=== PATIENT | female | born 1955 | race Caucasian/White ===

== ENCOUNTER 2016-10-22 03:39 | Observation (INO) | payer BC, SELFPAY ==
--- NOTE | ~2016-10-22 | HP ---
History And Physical [id number] [place]. [address] NAME: SHIRIN GIBSON : 55 STATUS : ADM Gissel PAT#: [id number] AGE: 60 ADM/REG DATE : 10/22/16 MR#: [id number] REPORT SERV DATE: 10/22/16 DICTATED BY: MAGI AVILES DATE: 10/22/16 REPORT STATUS : Draft TRANSCRIBED BY: MODL DATE: 10/22/16 DATE OF ADMISSION: 10/22/2016 HELPDESK SPECIALIST: Radha and Rigo at [facility] (requests new patient appointment at [facility]). CHIEF COMPLAINT: Chest pain. HISTORY OF PRESENT ILLNESS: A very pleasant, 60-year-old, white female with known history of CAD, status post BMS to ramus 10/[address] Garcia and PVD with bilateral carotid stents and mesenteric PTCA by Dr. Moreira in 2013. The patient states that on 10/21 around 2100 she was getting ready for bed. She developed left-sided chest pain that radiated to her left neck and down her left arm. She rates the chest pain a 10/10 at its most intense. At time of interview in the [facility], she is pain free. She states the episode lasted approximately 60 minutes in duration. She reports she did not take any additional aspirin or nitroglycerin sublingual prior to driving herself here. She reports associated shortness of breath, nausea, diaphoresis, and dizziness, wanted to belch but could not. She actually reports these symptoms as somewhat dissimilar to when she had her stent placed in 2013 although she can't really describe her symptoms prior to her stent placement. She believes she had a heart attack with her stent placement or prior to her stent placement, reports a TIA in 2013 with deficits of imbalance and some memory issues. Denies history of DVT or pulmonary embolus. The patient denies any recent fever or chills, describes occasional palpitations. Consumes 12-ounce coke occasionally. No syncopal episodes. Denies PND or orthopnea. PAST MEDICAL HISTORY: 1. CAD. a. Self reports, status post [place]. b. BMS to ramus 10/2013 ([place]). c. PVD. d. Stents to bilateral carotids. e. Mesenteric PTCA [address] Moreira. 2. Hypertension. 3. Dyslipidemia. 4. AODM, diet controlled. 5. Sleep apnea compliant with CPAP. 6. Positive family history for early CAD. PAST SURGICAL HISTORY: 1. Hysterectomy. 2. Cholecystectomy. 3. Tonsillectomy. 4. Left hand surgery. 5. Cataract repair. History And Physical [address] [place]. [address] NAME: SHIRIN GIBSON : 55 STATUS : ADM Gissel PAT#: [id number] AGE: 60 ADM/REG DATE : 10/22/16 MR#: [id number] REPORT SERV DATE: 10/22/16 DICTATED BY: MAGI AVILES DATE: 10/22/16 REPORT STATUS : Draft TRANSCRIBED BY: PEPPER DATE: 10/22/16 SOCIAL HISTORY: She is with two children. Currently, disabled. Previously employed as a hairdresser. Does not have an exercise routine. Denies tobacco, alcohol, or illicit's. FAMILY HISTORY: Father with a heart attack at 32, of a heart attack at 42. Mother with a stroke at 75, remains alive at the age of 80. REVIEW OF SYSTEMS: A 14-point review of systems performed, significant for HPI including reported labile blood pressures, unable to report specific numbers. Recently valsartan has been cut in half from 320 to 160 mg daily. The patient reports a cath most recently at [facility] 03/2016. We will attempt to obtain records. Otherwise complete review of systems obtained and negative. ALLERGIES: ISOSORBIDE, SHORTNESS OF BREATH, NEAR-SYNCOPE. DOXYCYCLINE, RASH. METOPROLOL, BAD REACTION. COMPAZINE, HARDENED VEIN, AND SOME UNKNOWN MED ADMINISTERED DURING HYSTERECTOMY, RASH AND HOT ALL OVER. HOME MEDICINES: Albuterol p.r.n.; aspirin 81 mg daily; vitamin D 2000 mg daily; Plavix 75 mg nightly; Zetia 5 mg nightly; levothyroxine 100 mcg daily; Cortisporin ear drops; Crestor 10 mg nightly; Aldactone 50 mg daily and 25 mg p.r.n.; valsartan 160 mg nightly. PHYSICAL EXAMINATION: VITAL SIGNS: Bilateral blood pressures on arrival, right 139/62, left 130/58, pulse 52, respirations 19, temperature 97.8, O2 saturation 98% on room air, height 5 feet 6 inches, weight 175 pounds, BMI 28. GENERAL: Cooperative, in no apparent distress. HEENT: Pupils 2 mm, sclera nonicteric. Nares patent. Moist mucous membranes. No xanthelasma. NECK: Trachea midline, no thyromegaly. No JVD. No bruits. LYMPH: No cervical lymphadenopathy. No supraclavicular lymphadenopathy. RESPIRATORY: Unlabored respirations. Breath sounds clear bilaterally to posterior auscultation. No wheezes or rhonchi. CARDIOVASCULAR: Regular rate. No murmur, rub or gallop appreciated. Extremities without edema. Pulses 2+ bilaterally. ABDOMEN: Soft, nontender, nondistended, normal bowel sounds auscultated throughout. No organomegaly. SKIN: Warm, dry extremities. No pallor, or cyanosis. PSYCHIATRIC: Appropriate affect. Alert, oriented x3. LABORATORY DATA: Troponin less than 0.02 x3. Potassium 3.6, BUN 26, creatinine 1.10, glucose 117, magnesium 2.0. WBC 5.9, hemoglobin 16.6, hematocrit 48.2, platelet count 176,000. EKG, sinus rhythm with nonspecific T-waves. MPI, 03/2014: Rodney stage 2, 6.2 minutes, 7 METS. No ischemia but with 6/10 chest pain. Cath 04/2014 ([place]): EF 55%. No significant in-stent restenosis found. History And Physical [address] [address] NAME: SHIRIN GIBSON : 55 STATUS : ADM Gissel PAT#: [id number] AGE: 60 ADM/REG DATE : 10/22/16 MR#: [id number] REPORT SERV DATE: 10/22/16 DICTATED BY: MAGI AVILES DATE: 10/22/16 REPORT STATUS : Draft TRANSCRIBED BY: MODL DATE: 10/22/16 The patient reports cath on 03/2016 at [facility]. No PCI per report. ASSESSMENT AND PLAN: 1. Chest pain in patient with multiple risk factors. She has been observed in the CPOU overnight to rule out myocardial infarction. Three sets of cardiac markers negative. EKG appears stable. The patient has been held n.p.o. We will proceed with MPI today. Home if low risk, no ischemia. If anything suggestive of ischemia, Cardiology referral will be initiated. Otherwise, the patient will be asked to follow up with her PCP. The patient requests a new patient appointment at [facility] which will be arranged for her. 2. Coronary artery disease. Obtain records from [facility]. New patient appointment at [facility]. 3. Hypertension. Monitor blood pressure. Continue home medications. 4. Dyslipidemia. Continue statin. 5. Adult onset diabetes mellitus. Currently, diet controlled. Continue 1800 calorie ADA diet. 6. Peripheral vascular disease, has appointment with Dr. Moreira on 10/28. She has been instructed to keep that appointment. KAREN/MODL Magi Aviles MSN, TITLE SUPERVISOR-BC / [id number] CC: MILE Noel, TITLE SUPERVISOR-BC Bon Goldsmith MD
[2016-10-22 01:40] LABS: BASOPHILS 0.5 %; BASOPHILS ABSOLUTE 0.03 10/3/uL (0.0-0.16); EOSINOPHILS 5.1 %; ER CBC TAT 0 Hrs 00 Mins; HEMATOCRIT 48.2 % (36.0-48.0); HEMOGLOBIN 16.6 g/dL (12.0-16.0); IMMATURE GRANULOCYTES 0.2 %; IMMATURE GRANULOCYTES ABSOLUTE 0.01 10/3/uL (0.0-0.11); LYMPHOCYTES 37.9 %; LYMPHOCYTES ABSOLUTE 2.22 10/3/uL (0.67-4.30); MEAN CORPUS HGB CONC 34.4 g/dL (32.0-36.0); MEAN CORPUSCULAR HEMOGLOB 30.9 pg (26.0-34.0); MEAN CORPUSCULAR VOLUME 89.6 fL (80-100); MEAN PLATELET VOLUME 11.4 fL (9.2-13.0); MONOCYTES 6.7 %; MONOCYTES ABSOLUTE 0.39 10/3/uL (0.21-1.20); NEUTROPHILS 49.6 %; PLATELET COUNT 176 10/3/uL (150-400); RED CELL COUNT 5.38 10/6/uL (4.0-5.6); WHITE BLOOD CELLS 5.9 10/3/uL (4.5-10.5)
[2016-10-22 01:41] LABS: MANUAL DIFF NO %
[2016-10-22 01:50] LABS: INTERNATIONAL NORMAL RATI 0.9 UNITS (-); PARTIAL THROMBO TIME 27.3 SEC (22.5-37.2); PROTIME (NOT ORD) 12.4 SEC (12.0-14.5)
[2016-10-22 01:58] LABS: BUN (BLOOD UREA NITROGEN) 26 MG/DL (6-23); CALCIUM, SERUM 8.6 MG/DL (8.5-10.4); CHEST PAIN PROFILE TAT 0 Hrs 11 Mins; CHLORIDE, SERUM 111 MMOL/L (96-112); CO2 (CARBON DIOXIDE) 26 MMOL/L (24-34); GFR AFRICAN AMERICAN 63 ML/MIN (>=60); GFR NON AFRICAN AMERICAN 55 ML/MIN (>=60); GLUCOSE, SERUM 117 MG/DL (60-99); SODIUM, SERUM 145 MMOL/L (135-148); TROPONIN I <0.02 NG/ML (<0.05)
[2016-10-22 02:02] LABS: POTASSIUM, SERUM 3.6 MMOL/L (3.5-5.3)
[~2016-10-22 03:39] MED LIST: ASAB PO; CHLORTHALID50 MG OR; COREG3 PO; CRESTOR10 PO; DIL4TAB PO; DIOV160 PO; FISH OIL PO; FLONASE NAS; HALF81 PO; HYGROTON 25 MG25 MG PO; ISOSORBIDE; KLOR-CON M2020 MEQ PO; LEVOTHYROXIN100 MCG PO; LEVOTHYROXIN88 MCG PO; LIPITOR20 PO; LOP25 PO; METOPROLOL; MULTIPLE VIT PO; NASONEX NAS; NITROSTAT0.4 MG SL; NORCO1 TAB PO; NORV5 PO; OS500+D PO; PEPCID AC PO; PLAVIX PO; PROAIR HFA INH; PROTONIX PO; SPIRO50 PO; SYN1 PO; T PO; VITAMIN D2000 UNIT PO; ZETIA PO
[2016-10-22] MEDS ORDERED: PROAIR HFA INH (03:47)
[2016-10-22] MEDS ORDERED: CORTOTSOL OT (03:48)
[2016-10-22] MEDS ORDERED: DIOVAN320 MG PO (03:48)
[2016-10-22] MEDS ORDERED: SYN1 PO (03:49)
[2016-10-22] MEDS ORDERED: SPIRO25 PO (03:49)
[2016-10-22] MEDS ORDERED: VITAMIN D31000 UNIT PO (03:50)
[2016-10-22] MEDS ORDERED: PLAVIX PO (03:50)
[2016-10-22] MEDS ORDERED: SPIRO50 PO (03:50)
[2016-10-22] MEDS ORDERED: ASAB PO (03:50)
[2016-10-22] MEDS ORDERED: CRESTOR10 PO (03:51)
[2016-10-22] MEDS ORDERED: ZETIA PO (03:52)
== END 2016-10-22 14:34 | disposition home or self-care (01) ==
LOC: ER 03:39 → CDU1 03:42
PROVIDERS: Specialist
DX: R07.9 Chest pain, unspecified (principal); I25.10 Atherosclerotic heart disease of native coronary artery without angina pectoris; I73.9 Peripheral vascular disease, unspecified; I25.2 Old myocardial infarction; I10 Essential (primary) hypertension; E78.5 Hyperlipidemia, unspecified; E11.9 Type 2 diabetes mellitus without complications; G47.30 Sleep apnea, unspecified; Z99.81 Dependence on supplemental oxygen; Z90.710 Acquired absence of both cervix and uterus; Z90.49 Acquired absence of other specified parts of digestive tract; Z98.890 Other specified postprocedural states; Z88.8 Allergy status to other drugs, medicaments and biological substances; Z79.82 Long term (current) use of aspirin; Z79.02 Long term (current) use of antithrombotics/antiplatelets; Z79.899 Other long term (current) drug therapy
CPT/HCPCS: 71020; 78452; 80048; 83735; 84484; 85025; 85610; 85730; 93005; 93017; 96374; 96375; 99285; A9270-GY; A9502; G0378; J2405

== ENCOUNTER 2016-11-08 13:26 | Inpatient (IN) | payer BC, SELFPAY ==
[2016-11-06 13:50] LABS: HEMATOCRIT 48.3 % (36.0-48.0); HEMOGLOBIN 16.9 g/dL (12.0-16.0); MEAN CORPUSCULAR HEMOGLOB 30.8 pg (26.0-34.0); MEAN CORPUSCULAR VOLUME 88.1 fL (80-100); MEAN PLATELET VOLUME 11.5 fL (9.2-13.0); PLATELET COUNT 177 10/3/uL (150-400); RBC DISTRIBUTION WIDTH 12.9 % (12.0-16.0); RED CELL COUNT 5.48 10/6/uL (4.0-5.6); WHITE BLOOD CELLS 7.1 10/3/uL (4.5-10.5)
[2016-11-06 13:52] LABS: MANUAL DIFF YES %
[2016-11-06 13:54] LABS: ASCORBIC ACID (UR NOT ORDER) NEG (NEG); BILIRUBIN, URINE NEGATIVE (NEG); KETONE, URINE NEGATIVE (NEG); LEUKOCYTE ESTERASE(NOT OR MOD (NEG); WBC (NOT ORDERED) (RFLEX) 3 (0-5)
[2016-11-06 14:04] LABS: CALCIUM, SERUM 9.3 MG/DL (8.5-10.4); CHLORIDE, SERUM 108 MMOL/L (96-112); CO2 (CARBON DIOXIDE) 29 MMOL/L (24-34); CREATININE 1.02 MG/DL (0.55-1.02); GFR AFRICAN AMERICAN 69 ML/MIN (>=60); GFR NON AFRICAN AMERICAN 59 ML/MIN (>=60); GLUCOSE, SERUM 96 MG/DL (60-99); SODIUM, SERUM 144 MMOL/L (135-148)
[2016-11-06 14:05] LABS: BUN (BLOOD UREA NITROGEN) 21 MG/DL (6-23); POTASSIUM, SERUM 4.7 MMOL/L (3.5-5.3)
[2016-11-06 14:15] LABS: EOSINOPHILS 1 %; EOSINOPHILS ABSOLUTE (CALC) 0.07 10/3/uL (0.0-0.53); LYMPHOCYTES 28 %; LYMPHOCYTES ABSOLUTE (CALC) 1.99 10/3/uL (0.67-4.30); MONOCYTES 6 %; MONOCYTES ABSOLUTE (CALC) 0.43 10/3/uL (0.21-1.20); NEUTROPHILS ABSOLUTE (CALC) 4.62 10/3/uL (2.02-8.40); PLATELET ESTIMATE ADQ (ADEQUATE); SEGMENTED NEUTROPHIL (0) 65 %; TOTAL NUCLEATED CELLS 100
[2016-11-06 14:16] LABS: BURR CELLS 1+ (3-10/OIF) (0-2/OIF); ELLIPTOCYTES 1+ (3-10/OIF) (0-2/OIF); TEARDROP SHAPED RBCS FEW (3-10/OIF)
--- NOTE | ~2016-11-08 | OP ---
Record Of Operation [facility] [address] [place]. [address] NAME: SHIRIN NINA : 55 STATUS : DIS IN PAT#: [id number] AGE: 61 ADM/REG DATE : 11/08/16 MR#: [id number] REPORT SERV DATE: 11/12/16 DICTATED BY: AYAAN SCHUMACHER II DATE: 11/12/16 REPORT STATUS : Draft TRANSCRIBED BY: MODL DATE: 11/12/16 DATE OF PROCEDURE: 11/08/2016 SURGEON: Ayaan Schumacher M.D. FISCAL MANAGER: Dr. Rm. PREOPERATIVE DIAGNOSIS: Symptomatic recurrent right carotid stenosis. POSTOPERATIVE DIAGNOSIS: Symptomatic recurrent right carotid stenosis. PROCEDURES: 1. Right cervical carotid angiogram. 2. Percutaneous primary stent placement with distal filter protection of recurrent internal carotid artery stenosis. ANESTHESIA: Local with MAC. IV FLUIDS: 200 mL. ESTIMATED BLOOD LOSS: 20 mL. BRIEF HISTORY: Ms Nina is a pleasant 61-year-old female, who is a long-standing patient of mine. She had previously presented with bilateral carotid stenosis as well as a significant cardiac history. She has undergone previous bilateral carotid stent placement. She experienced an episode of amaurosis fugax in her right eye as well as TIA involving the left upper extremity. Repeat ultrasound demonstrates recurrent stenosis within the right internal carotid artery within the distal aspect of the stent, and the [place] mid internal carotid artery. Based on the recurrent nature of this stenosis, she was felt to be at high risk for endarterectomy and was recommended to undergo angiogram, and possible stent placement. DESCRIPTION OF PROCEDURE: She was taken to the operating room and placed in supine position on the table. Sedation was achieved. Both groins were prepped and draped. We used ultrasound to identify the right common femoral artery and performed a puncture, and placed a 6-Persian sheath. Systemic heparin was given. We passed a catheter into the right common carotid artery. Angiogram was performed demonstrating a patent common carotid internal and external carotid artery. There was a stent present within the common carotid artery that extends into the internal carotid, at the distal aspect of the stent, there was a focal recurrent stenosis of more than 80%. There was also mild recurrent stenosis within the existing stent. The distal internal carotid was widely patent; however, there was evidence of evidence of mild fibromuscular dysplasia involving the very distal internal carotid artery. However, no significant stenosis was seen within this region. At this point, we elected to proceed with stent placement. I was able to pass a filter through the stenosis, and opened the filter in the distal internal carotid. Primary stent placement was performed using a 7 mm x 30 mm stent that was deployed within the distal internal carotid artery, and Record Of Operation [facility] [address] [place]. [address] NAME: SHIRIN NINA : 55 STATUS : DIS IN PAT#: [id number] AGE: 61 ADM/REG DATE : 11/08/16 MR#: [id number] REPORT SERV DATE: 11/12/16 DICTATED BY: AYAAN SCHUMACHER II DATE: 11/12/16 REPORT STATUS : Draft TRANSCRIBED BY: PEPPER DATE: 11/12/16 then with the proximal aspect extending down into the existing stent. We post dilated this with a 4-mm balloon. There was a severe waist that responded to 8 ATMs. Completion angiogram demonstrated a good placement of the stent with no further stenosis seen. No dissection or extravasation. Improved flow was noted distally. We then removed the filter and removed all the wires and catheters and closed percutaneously. At the end of the procedure, the patient was stable. She tolerated it well. She had no neurologic events, and she was transported to the recovery room in good condition. CEDRICK/PEPPER Ayaan Schumacher II, M.D. / [id number] CC: Chanelle Prajapati II, MD
[~2016-11-08 13:26] MED LIST changes: +CORTOTSOL OT; +DIOVAN320 MG PO; +SPIRO25 PO; +VITAMIN D31000 UNIT PO
[2016-11-09 04:19] LABS: BASOPHILS 0.1 %; BASOPHILS ABSOLUTE 0.01 10/3/uL (0.0-0.16); EOSINOPHILS 0 %; HEMOGLOBIN 15.3 g/dL (12.0-16.0); IMMATURE GRANULOCYTES 0.2 %; IMMATURE GRANULOCYTES ABSOLUTE 0.02 10/3/uL (0.0-0.11); LYMPHOCYTES ABSOLUTE 0.55 10/3/uL (0.67-4.30); MEAN CORPUS HGB CONC 36.2 g/dL (32.0-36.0); MEAN CORPUSCULAR HEMOGLOB 31.6 pg (26.0-34.0); MEAN CORPUSCULAR VOLUME 87.4 fL (80-100); MEAN PLATELET VOLUME 11.1 fL (9.2-13.0); MONOCYTES 3.6 %; MONOCYTES ABSOLUTE 0.33 10/3/uL (0.21-1.20); NEUTROPHILS 90.1 %; NEUTROPHILS ABSOLUTE 8.32 10/3/uL (2.02-8.40); PLATELET COUNT 155 10/3/uL (150-400); RBC DISTRIBUTION WIDTH 12.9 % (12.0-16.0); RED CELL COUNT 4.84 10/6/uL (4.0-5.6); WHITE BLOOD CELLS 9.2 10/3/uL (4.5-10.5)
[2016-11-09 04:21] LABS: HEMATOCRIT 42.3 % (36.0-48.0); MANUAL DIFF NO %
[2016-11-09 04:34] LABS: CALCIUM, SERUM 8.6 MG/DL (8.5-10.4); CHLORIDE, SERUM 109 MMOL/L (96-112); CO2 (CARBON DIOXIDE) 25 MMOL/L (24-34); GFR AFRICAN AMERICAN 80 ML/MIN (>=60); GFR NON AFRICAN AMERICAN 69 ML/MIN (>=60); POTASSIUM, SERUM 3.8 MMOL/L (3.5-5.3); SODIUM, SERUM 142 MMOL/L (135-148)
[2016-11-09 04:35] LABS: BUN (BLOOD UREA NITROGEN) 16 MG/DL (6-23); GLUCOSE, SERUM 146 MG/DL (60-99)
== END 2016-11-10 13:30 | disposition home or self-care (01) | DRG 36 ==
LOC: SDC 13:26 → CVICU 19:11 → 2SO 11-09 13:38
PROVIDERS: Surgery
PROC: B41D1ZZ Fluoroscopy of Aorta and Bilateral Lower Extremity Arteries using Low Osmolar Contrast (ICD-10-PCS; 2016-11-08)
PROC: 037K3DZ Dilation of Right Internal Carotid Artery with Intraluminal Device, Percutaneous Approach (ICD-10-PCS; principal; 2016-11-08 14:45)
PROC: X2A5312 Cerebral Embolic Filtration, Dual Filter in Innominate Artery and Left Common Carotid Artery, Percutaneous Approach, New Technology Group 2 (ICD-10-PCS; 2016-11-08 14:45)
DX: I65.21 Occlusion and stenosis of right carotid artery (principal); E11.51 Type 2 diabetes mellitus with diabetic peripheral angiopathy without gangrene; I25.10 Atherosclerotic heart disease of native coronary artery without angina pectoris; Z95.5 Presence of coronary angioplasty implant and graft; E78.5 Hyperlipidemia, unspecified; I10 Essential (primary) hypertension; Z86.73 Personal history of transient ischemic attack (TIA), and cerebral infarction without residual deficits; G47.30 Sleep apnea, unspecified; M17.9 Osteoarthritis of knee, unspecified; K21.9 Gastro-esophageal reflux disease without esophagitis
CPT/HCPCS: 37215; 71020; 80048; 81001; 82962; 85014; 85018; 85025; 87086; 93005; A9270-GY; C1725; C1760; C1769; C1876; C1894; J0360; J0690; J1170; J2250; J2405; J3010; Q9967

== ENCOUNTER 2016-11-12 19:34 | Emergency (ER) | payer BC | END 2016-11-12 20:08 | disposition home or self-care (01) | LOC: ER 19:34 | DX: G89.18 Other acute postprocedural pain (principal); M54.2 Cervicalgia; I10 Essential (primary) hypertension; Z95.5 Presence of coronary angioplasty implant and graft; E11.9 Type 2 diabetes mellitus without complications; Z88.8 Allergy status to other drugs, medicaments and biological substances; Z79.899 Other long term (current) drug therapy; Z79.82 Long term (current) use of aspirin | CPT/HCPCS: 99283 ==

== ENCOUNTER 2016-11-23 14:47 | Emergency (ER) | payer BC ==
[2016-11-23 15:37] LABS: BASOPHILS 0.5 %; BASOPHILS ABSOLUTE 0.03 10/3/uL (0.0-0.16); EOSINOPHILS 2.5 %; EOSINOPHILS ABSOLUTE 0.16 10/3/uL (0.0-0.53); HEMOGLOBIN 16.6 g/dL (12.0-16.0); IMMATURE GRANULOCYTES 0.2 %; IMMATURE GRANULOCYTES ABSOLUTE 0.01 10/3/uL (0.0-0.11); LYMPHOCYTES 27.6 %; LYMPHOCYTES ABSOLUTE 1.76 10/3/uL (0.67-4.30); MEAN CORPUSCULAR HEMOGLOB 30.1 pg (26.0-34.0); MEAN CORPUSCULAR VOLUME 89.3 fL (80-100); MEAN PLATELET VOLUME 11.5 fL (9.2-13.0); MONOCYTES 7.8 %; NEUTROPHILS 61.4 %; NEUTROPHILS ABSOLUTE 3.91 10/3/uL (2.02-8.40); RBC DISTRIBUTION WIDTH 12.7 % (12.0-16.0); RED CELL COUNT 5.52 10/6/uL (4.0-5.6); WHITE BLOOD CELLS 6.4 10/3/uL (4.5-10.5)
[2016-11-23 15:40] LABS: HEMATOCRIT 49.3 % (36.0-48.0); MANUAL DIFF NO %; MEAN CORPUS HGB CONC 33.7 g/dL (32.0-36.0); PLATELET COUNT 218 10/3/uL (150-400)
[2016-11-23 15:44] LABS: PARTIAL THROMBO TIME 27.3 SEC (22.5-37.2); PROTIME (NOT ORD) 13.3 SEC (12.0-14.5)
[2016-11-23 15:54] LABS: BUN (BLOOD UREA NITROGEN) 30 MG/DL (6-23); CALCIUM, SERUM 8.9 MG/DL (8.5-10.4); CHEST PAIN PROFILE TAT 0 Hrs 23 Mins; CHLORIDE, SERUM 111 MMOL/L (96-112); CO2 (CARBON DIOXIDE) 23 MMOL/L (24-34); CREATININE 1.09 MG/DL (0.55-1.02); GFR AFRICAN AMERICAN 63 ML/MIN (>=60); GFR NON AFRICAN AMERICAN 55 ML/MIN (>=60); GLUCOSE, SERUM 130 MG/DL (60-99); SODIUM, SERUM 143 MMOL/L (135-148); TROPONIN I <0.02 NG/ML (<0.05)
[2016-11-23 16:44] LABS: ASCORBIC ACID (UR NOT ORDER) 20 (NEG); BILIRUBIN, URINE NEGATIVE (NEG); ER URINALYSIS TAT 0 Hrs 16 Mins; KETONE, URINE NEGATIVE (NEG); LEUKOCYTE ESTERASE(NOT OR SMALL (NEG); NITRITE (URINE) NEG (NEG); WBC (NOT ORDERED) (RFLEX) 1 (0-5)
== END 2016-11-23 20:50 | disposition home or self-care (01) ==
LOC: ER 14:47
PROVIDERS: Emergency Medicine; Hospitalist
DX: E86.0 Dehydration (principal); I95.2 Hypotension due to drugs; R55 Syncope and collapse; I10 Essential (primary) hypertension; E11.9 Type 2 diabetes mellitus without complications; Z90.710 Acquired absence of both cervix and uterus; Z90.49 Acquired absence of other specified parts of digestive tract
CPT/HCPCS: 71020; 80048; 81001; 83735; 84484; 85025; 85610; 85730; 87086; 93005; 99284